=== PATIENT | male | born 1980 | race Hispanic/Latino ===

== ENCOUNTER 2016-12-13 17:26 | Emergency (ER) | payer SELFPAY ==
[2016-12-13] MEDS ORDERED: Ketorolac Tromethamine 60 MG/2 ML VIAL ONE (18:16)
--- NOTE | 2016-12-13 18:43 | RAD ---
THREE VIEWS LUMBAR SPINE: 12/13/16 COMPARISON: 07/05/16 HISTORY: Left leg erythema x2 weeks. Left pain shooting down the buttock to the foot. FINDINGS: Five lumbar type vertebral bodies. Lumbar spine vertebral body height is maintained. No fracture. St able mild to moderate degenerative change at the L4-L5 level. Stable mild degenerative change at L3- L4. Stable osteophyte formation. Straightening of the normal lumbar lordosis is similar to the prior examination. No definite spondylolisthesis or spondylolysis. IMPRESSION: 1. No fracture. 2. Stable degenerative change. POS: [facility]
== END 2016-12-13 18:58 | disposition home or self-care (01) ==
LOC: ERS 17:26
DX: M51.36 Other intervertebral disc degeneration, lumbar region (principal); F17.210 Nicotine dependence, cigarettes, uncomplicated
CPT/HCPCS: 72100; 96372; J1885

== ENCOUNTER 2017-01-04 10:14 | Emergency (ER) | payer SELFPAY ==
[2017-01-04] MEDS ORDERED: Morphine 2 MG/ML SYRINGE ONE (12:51)
[2017-01-04] MEDS ORDERED: Ibuprofen 800 MG TAB ONE (12:52)
[2017-01-04] MEDS ORDERED: Promethazine HCl 25 MG/ML VIAL ONE (12:52)
[2017-01-04] MEDS ORDERED: Dexamethasone 4 mg/ml Vial ONE (12:52)
== END 2017-01-04 13:22 | disposition home or self-care (01) ==
LOC: ERS 10:14
DX: M54.32 Sciatica, left side (principal); F17.210 Nicotine dependence, cigarettes, uncomplicated
CPT/HCPCS: 96372; J1100; J2270; J2550

== ENCOUNTER 2017-05-23 08:54 | Emergency (ER) | payer SELFPAY ==
[2017-05-23 10:27] LABS: #Basophils 0.1 thou/uL (0.0-0.2); #Eosinphils 0.3 thou/uL (0.0-0.7); #Neutrophils 4.9 thou/uL (1.40-6.50); %Basophils 1.2 % (0.0-1.0); %Eosinophils 2.8 % (0.0-10.0); %Lymphocytes 32.8 % (21.0-51.0); %Monocytes 10.2 % (0.0-10.0); Hemoglobin 15.8 g/dL (14.0-18.0); Mean Corpuscular HGB CONC 33.5 g/dL (32.0-36.0); Mean Corpuscular Hemoglobin 29.5 pg (27.0-31.0); Mean Platelet Volume 6.5 fL (7.4-10.4); Platelet Count 371 thou/uL (130-400); RBC Distribution Width 14.8 % (11.5-14.5); Red Blood Cell (RBC) Count 5.34 mill/uL (4.70-6.10); White Blood Cell (WBC) Count 9.3 thou/uL (4.8-10.8)
[2017-05-23 10:52] LABS: ALT (SGPT) 40 U/L (8-55); AST (SGOT) 47 U/L (5-34); Albumin 4.4 g/dL (3.5-5.0); Alkaline Phosphatase 99 U/L (40-150); Anion Gap 12 mmol/L (10-20); BUN (Urea Nitrogen) 8 mg/dL (8.9-20.6); Bilirubin, Total 0.5 mg/dL (0.2-1.2); CK (CPK) 173 U/L (30-200); Calc. Creatinine Clearance 0 mL/min (70-130); Calcium 9.4 mg/dL (7.8-10.44); Carbon Dioxide 24 mmol/L (22-29); Chloride 102 mmol/L (98-107); Estimated GFR-MDRD Greater than 90; Globulin 2.9 g/dL (2.4-3.5); Glucose 99 mg/dL (70-105); Lipase 90 U/L (8-78); Potassium 4.4 mmol/L (3.5-5.1); Protein, Total 7.3 g/dL (6.0-8.3); Sodium 134 mmol/L (136-145)
[2017-05-23 10:56] LABS: CKMB 2.2 ng/mL (0-6.6); Troponin I Less than 0.010 ng/mL (< 0.028)
--- NOTE | 2017-05-23 11:24 | RAD ---
PORTABLE CHEST: Date: 05/23/17 HISTORY: Chest pain. COMPARISON: 11/29/16 study. FINDINGS: Heart size and mediastinum are within normal limits. Lungs are clear of infiltrates. No significant b regla findings. IMPRESSION: No active intrathoracic disease. POS: [facility]
[2017-05-23] MEDS ORDERED: Ketorolac Tromethamine 60 MG/2 ML VIAL ONE (11:25)
--- NOTE | 2017-05-30 13:12 | EKG ---
Test Reason : LEFT SIDE PAIN Blood Pressure : / mmHG Vent. Rate : 091 BPM Atrial Rate : 091 BPM P-R Int : 146 ms QRS Dur : 080 ms QT Int : 340 ms P-R-T Axes : 048 024 022 degrees QTc Int : 418 ms Normal sinus rhythm Septal infarct , age undetermined Abnormal ECG Confirmed by DENYS HAILE ([id number]), editor managing director LIZ BAKER ([id number] on 05/30/2017 1:11:51 PM Referred By: Confirmed By:DENYS HAILE
== END 2017-05-23 12:03 | disposition home or self-care (01) ==
LOC: ERS 08:54
DX: M54.12 Radiculopathy, cervical region (principal); I10 Essential (primary) hypertension; F17.210 Nicotine dependence, cigarettes, uncomplicated; Z79.899 Other long term (current) drug therapy
CPT/HCPCS: 36415; 71045; 80053; 82550; 82553; 83690; 83880; 84484; 85025; 93005; 96372; 99406; J1885

== ENCOUNTER 2017-07-26 09:20 | Inpatient (IN) | payer SELFPAY ==
[2017-07-26] MEDS ORDERED: Morphine 4 MG/ML VIAL ONE ×4 (09:34→13:23)
[2017-07-26] MEDS ORDERED: Pantoprazole 40 MG VIAL ONE (09:34)
[2017-07-26 10:05] LABS: Hemoglobin 15.4 g/dL (14.0-18.0); Mean Corpuscular HGB CONC 35.8 g/dL (32.0-36.0); Mean Corpuscular Volume 89.4 fl (80.0-94.0); Platelet Count 181 thou/uL (130-400); RBC Distribution Width 12.4 % (11.5-14.5); Red Blood Cell (RBC) Count 4.81 mill/uL (4.70-6.10); White Blood Cell (WBC) Count 22.9 thou/uL (4.8-10.8)
[2017-07-26 10:15] LABS: ALT (SGPT) 113 U/L (8-55); AST (SGOT) 133 U/L (5-34); Albumin 3.5 g/dL (3.5-5.0); Alkaline Phosphatase 113 U/L (40-150); Anion Gap 18 mmol/L (10-20); BUN (Urea Nitrogen) 7 mg/dL (8.9-20.6); Bilirubin, Total 1.7 mg/dL (0.2-1.2); CK (CPK) 114 U/L (30-200); Calc. Creatinine Clearance 0 mL/min (70-130); Carbon Dioxide 15 mmol/L (22-29); Chloride 98 mmol/L (98-107); Estimated GFR-MDRD Greater than 90; Globulin 2.9 g/dL (2.4-3.5); Glucose 120 mg/dL (70-105); Lipase 309 U/L (8-78); Potassium 3.4 mmol/L (3.5-5.1); Protein, Total 6.4 g/dL (6.0-8.3); Sodium 128 mmol/L (136-145)
[2017-07-26 10:20] LABS: CKMB 1.6 ng/mL (0-6.6); Troponin I Less than 0.010 ng/mL (< 0.028)
[2017-07-26 10:32] LABS: Band 4 % (5-11); Eosinophils 2 % (0-10); Lymphocytes 4 % (21-51); MDiff Complete? YES; Metamyelocyte 1 % (0-0); Monocytes 5 % (0-10); Neutrophil 84 % (42-75)
[2017-07-26 10:48] LABS: Acetaminophen Less than 6.0 mcg/mL (10.0-30.0); Alcohol Less than 10 mg/dL (Less than 10); Salicylate Less than 8.0 mg/dL (15.0-30.0)
[2017-07-26] MEDS ORDERED: D5 1/2 NS w/20 mEq KCL 1,000 ML IV SCH (11:00)
[2017-07-26 11:14] LABS: Amphetamine Not Detected (NotDetected); Barbiturates Screen Not Detected (NotDetected); Benzodiazepine Screen Not Detected (NotDetected); Cocaine Metabolite Screen Not Detected (NotDetected); Medtox Control Line Valid? VALID (VALID); Medtox Reader # READER 1; Methadone Not Detected (NotDetected); Methamphetamine Not Detected (NotDetected); Opiate Screen Detected (NotDetected); Oxycodone Screen Not Detected (NotDetected); Phencyclidine (PCP) Not Detected (NotDetected); THC/Cannabinoid Screen Detected (NotDetected); Tricyclic Screen Not Detected (NotDetected)
[2017-07-26 11:18] LABS: Clarity Clear (Clear); pH, Urine 6.5 (5.0-9.0)
[2017-07-26 11:19] LABS: Bacteria/HPF None Seen HPF (None Seen); Bilirubin Negative (Negative); Blood, Urine Negative (Negative); Glucose, Urine (Dipstick) Negative (Negative); Hyaline Casts/LPF 0-3 HYALINE CAST LPF (0-3 Hyaline); Leukocyte Trace (Negative); Nitrite Negative (Negative); Protein, Urine (Dipstick) Negative (Neg-Trace); RBC/HPF 0-3 HPF (0-3); Squamous Epithelial 0-3 HPF (0-3); Urobilinogen 0.2 mg/dL (0.2-1.0); WBC/HPF 0-3 HPF (0-3)
--- NOTE | 2017-07-26 12:35 | RAD ---
CHEST 1 VIEW: COMPARISON: 05/23/17. HISTORY: Vomiting and nausea. FINDINGS: Normal cardiac silhouette. Pulmonary vessels and hilum are normal. Costophrenic angles are clear. Diminished lung volumes, likely due to a poor inspiratory effort. No consolidation or mass. No pneu mothorax or osseous abnormalities. IMPRESSION: No acute cardiopulmonary process. POS: [facility]
--- NOTE | 2017-07-26 12:47 | CT ---
ABDOMEN CT WITH CONTRAST PELVIC CT WITH CONTRAST: HISTORY: Abdominal pain. COMPARISON: 11/29/16. TECHNIQUE: An abdomen and pelvic CT are performed with IV contrast. Enteric contrast was not administered. Cor onal reformatted images are submitted for interpretation. FINDINGS: ABDOMEN CT: Atelectatic changes of the lung bases. Heart size normal. No pericardial effusion. The descending thoracic aorta and abdominal aorta have a normal caliber. No periaortic fat stranding. Hypoattenuation of the liver due to hepatic steatosis. Gallbladder is unremarkable. Portal vein is patent. Spleen and adrenal glands have appropriate enhancement. There is peripancreatic inflammatory change at the level of the distal body and tail of the pancreas. Fluid is noted anterior to the right perirenal space. No evidence of cyst, pseudocyst, or abscess. No gastrohepatic, retrocrural, or periportal lymphadenopathy. No mesenteric mass, lymphadenopathy, or free air. A small amount of fluid in the left pericolic gutt er. Limited evaluation of the alimentary canal due to lack of oral contrast. Gastric mucosa, duodenum, a nd multiple normal-caliber small bowel loops are normal. Ileocecal junction is normal. There is div erticulosis of the sigmoid colon. No diverticulitis. Additional diverticulosis of the right hemicolon is noted. Note, the cecal apex crosses midline and is in the left lower quadrant. Appendix is not appreciated. No obvious inflammation at the cecal ap ex. PELVIC CT: No mass, lymphadenopathy, free air, or free fluid. Right inguinal hernia contains fat as well as a s egment of the urinary bladder. No lytic or blastic lesions in the osseous structures. IMPRESSION: 1. Pancreatitis. No evidence of cyst, pseudocyst, or abscess. 2. Hepatic steatosis. 3. Diverticulosis, without evidence of diverticulitis. POS: [facility]
[2017-07-26] MEDS ORDERED: ISOVUE-370 76%-LOCM 1 ML ONE (13:34)
[2017-07-26 14:33] VITALS: BMI 36.2
[2017-07-26] MEDS ORDERED: Ondansetron HCl/PF 4 MG/2 ML Vial IVP PRN (14:33)
[2017-07-26] MEDS ORDERED: Ondansetron ODT 4 MG TAB SL PRN (14:33)
[2017-07-26] MEDS ORDERED: Morphine 4 MG/ML VIAL SLOW IVP PRN (14:37)
[2017-07-26] MEDS ORDERED: Senokot 8.6 MG TAB PO PRN (16:27)
[2017-07-26] MEDS ORDERED: Promethazine HCl 25 MG/ML VIAL IM PRN (16:27)
[2017-07-26] MEDS ORDERED: Guaifenesin DM 100-10/5 ML UDCUP PO PRN (16:27)
[2017-07-26] MEDS ORDERED: Acetaminophen 325 MG TAB PO PRN (16:27)
[2017-07-26] MEDS ORDERED: Lactated Ringer's 1,000 ML IV SCH ×2 (16:30→19:30)
[2017-07-26] MEDS: Meperidine HCl/PF 25 MG/ML VIAL SLOW IVP PRN ×3 (16:48→23:45)
[2017-07-26 17:11] LABS: Cardiac Risk 5.5 (Less than 4.5); Cholesterol 122 mg/dl (< 200 Desired); HDL Cholesterol 22 mg/dL (>60 Neg Risk); Triglycerides 420 mg/dL (Less than 150)
[2017-07-26] MEDS: Lactated Ringer's 1,000 ML IV SCH (20:35)
[2017-07-26] MEDS: Metoprolol Tartrate 50 MG TAB PO SCH (20:36)
[2017-07-26] MEDS: Famotidine/PF 20 mg/2ml Vial SLOW IVP SCH (20:36)
[2017-07-26] MEDS: Docusate 100 MG CAP PO SCH (20:36)
[2017-07-26] MEDS: MEROPENEM 1 GM/50 ML 1 GM in Premix Bag 1 BAG IVPB SCH (20:37)
--- NOTE | 2017-07-26 21:47 | HP ---
REASON FOR ADMISSION: Acute pancreatitis. HISTORY OF PRESENT ILLNESS: Patient gives history of having severe abdominal pain in the middle of his belly. This started after he ate around 3:30 p.m. The pain is more of a twisting in nature. The pain is radiating to the back. It is 10/10 in intensity to start with, and came down to around 8. He tried to sleep with it, but could not sleep the whole night and finally made it to the emergency room this morning. Patient states he has had a bowel movement yesterday morning which was normal. Patient vomited nearly 4 or 5 times from yesterday. He has not been able to keep anything down. He states he has had prior episode of pancreatitis 4 years back. He admits to drinking 6 pack of beer daily. No complaints of fever, chest pain, palpitation, PND or orthopnea. PAST MEDICAL/SURGICAL HISTORY: History of hypertension, dyslipidemia, prior history of pancreatitis 4 years back, psoriasis. CURRENT MEDICATIONS: Patient has run out of his hypertension medication for the last two months. He goes to [facility] and has not been there in a long time. ALLERGIES: No known drug allergies. PERSONAL HISTORY: Smokes half pack a day. Does not abuse drugs, but drinks 6 pack of beer on daily basis. He denies additional hard liquor. He lives with his . FAMILY HISTORY: Both parents have had history of DE. Mom at the age of 54. Father at the age of 56. REVIEW OF SYSTEMS: The following complete review of systems was negative, unless otherwise mentioned in the HPI or below: Constitutional: Weight loss or gain, ability to conduct usual activities. Skin: Rash, itching. Eyes: Double vision, pain. ENT/Mouth: Nose bleeding, neck stiffness, pain, tenderness. Cardiovascular: Palpitations, dyspnea on exertion, orthopnea. Respiratory: Shortness of breath, wheezing, cough, hemoptysis, fever or night sweats. Gastrointestinal: Poor appetite, abdominal pain, heartburn, nausea, vomiting, constipation, or diarrhea. Genitourinary: Urgency, frequency, dysuria, nocturia. Musculoskeletal: Pain, swelling. Neurologic/Psychiatric: Anxiety, depression. Allergy/Immunologic: Skin rash, bleeding tendency. PHYSICAL EXAMINATION: GENERAL: Patient is a 36-year-old male who is currently in moderate to severe distress from abdominal pain. VITAL SIGNS: Blood pressure 170/126, respiratory rate is 20 per minute, pulse is 118 per minute, temperature 98.4 degrees Fahrenheit, saturating 96% on room air. NECK: Supple, no elevated JVD. HEENT: Eyes, extraocular muscles intact. Pupils reacting to light. Oral cavity, mucous membranes are dry. No exudates or congestion. CARDIOVASCULAR: S1, S2 heard, tachycardic. RESPIRATORY: Air entry 1+ bilateral. Scattered rhonchi plus no wheezes or rales. ABDOMEN: Tender to touch in all 4 quadrants. Has voluntary guarding. Bowel sounds are heard. No rigidity. EXTREMITIES: No peripheral edema or calf tenderness. VASCULAR SYSTEM: Peripheral pulses 1+ bilateral, no ischemic ulcerations or gangrene. CENTRAL NERVOUS SYSTEM: No gross focal deficits seen. Patient is alert, awake , oriented well. PSYCHIATRIC: The patient's mood is euthymic. No hallucinations or delusions. LABORATORY AND X-RAY FINDINGS: EKG done shows sinus tachycardia at 113 beats per minute. White count of 22, H&H 15 and 43, platelet count 181 with 84% neutrophils and 4% bands. Sodium 128, potassium 3.4, serum bicarbonate is 15, BUN 7, creatinine 0.6, glucose 120, total bilirubin 1.7, AST 133, ALT 113, alkaline phosphatase 113. One set of cardiac enzymes are negative. Albumin is 3.5. Lipase is 309, MCV is 89 on the CBC. Urine drug screen is positive for opiates and marijuana. Plasma alcohol was less than 10. Chest x-ray done shows no acute cardiopulmonary process. CT of the abdomen and pelvis with contrast done shows peripancreatic inflammatory change at the level of the distal body and tail of the pancreas, fluid is also noted anterior to the right perirenal space. No evidence of cyst, pseudocyst or abscess seen. No mesenteric mass, lymphadenopathy or free air seen and has findings of hepatic steatosis and diverticulosis without evidence of diverticulitis. CLINICAL IMPRESSION AND PLAN: Patient will be admitted to telemetry for acute pancreatitis. He has known history of alcohol abuse and also hypertriglyceridemia. Had triglyceride levels of 429 in 08/2014. Patient also had 1 prior episode of pancreatitis 4 years ago. He will be aggressively hydrated with Ringer's lactate at 120 mL per hour. Demerol p.r.n. for pain, Norvasc and Lopressor for his hypertension, Colace, Pepcid. He will be on clear liquid diet and I have consulted Dr. Alexander Morton for Gastroenterology. We will continue to closely monitor him for any further worsening. Code status was discussed with patient and he is a FULL CODE. His prognosis is guarded as of now. We will continue to closely monitor him. He will also be on Lovenox for DVT prophylaxis. MTDD
[2017-07-26] MEDS ORDERED: Meropenem 1 GM in Sodium Chloride 0.9% 100 ML IVPB SCH (22:00)
--- NOTE | 2017-07-27 00:40 | CON ---
DATE OF CONSULTATION: 07/26/2017 GASTROENTEROLOGY CONSULTATION CHIEF COMPLAINT: Abdominal pain. HISTORY OF PRESENT ILLNESS: Mr. Cummins is a 36-year-old man who drinks a 6 pack of beer per day at least since he was 14 or 15. He developed onset of periumbilical to diffuse abdominal cramping pain yesterday. The pain progressed and he came onto the emergency room this morning for further care. Karl araujo has no ongoing nausea or vomiting, no diarrhea, constipation or blood in the stool. His weight has been stable. He had a CT scan in the ER that showed inflammatory changes around the pancreas. He d enies a prior history of pancreatitis. No family history of pancreatitis. PAST MEDICAL HISTORY: Hypertension. PAST SURGICAL HISTORY: Negative. FAMILY HISTORY: Negative for GI malignancy or pancreas disease. SOCIAL HISTORY: He smokes half a pack per day. He drinks a 6 pack per day. Denies drug use. ALLERGIES: No known drug allergies. MEDICATIONS PRIOR TO ADMISSION: None. REVIEW OF SYSTEMS: Negative x10 systems reviewed except as stated in the history of present illness. PHYSICAL EXAMINATION: VITAL SIGNS: Temperature 98.6, pulse 125, blood pressure 162/109. He appears to have received a lit er of D5 half normal saline in the emergency room, some meropenem and is on lactated Ringer's at 120 mL per hour now. GENERAL: He is in no acute distress, alert and oriented x3. HEENT: Eyes have no scleral icterus. Oropharynx is clear without lesions. NECK: No cervical or supraclavicular lymphadenopathy. LUNGS: Clear to auscultation bilaterally. HEART: Tachycardic, S1, S2. ABDOMEN: Soft, tender diffusely without guarding. Bowel sounds are present. His abdomen is somewha t distended. EXTREMITIES: No lower extremity edema. LABORATORY: White blood cell count 22.9, hemoglobin 15.4, platelets 181. Sodium 128, potassium 3.4, chloride 98, CO2 of 15, BUN 7, creatinine 0.68, bilirubin 1.7, AST 133, ALT 113, alkaline phosphatas e 113, albumin 3.5, lipase 309, triglycerides 420. IMPRESSION: 1. Acute alcoholic pancreatitis. His lipase is elevated at 309, which is greater than 3 times upper limit of normal; however, need expect iron numbers with the acute inflammatory changes noted by CT s can. He likely has chronic alcoholic pancreatitis, which may result in lower lipase numbers. Overal l, this is a mild pancreatitis without secondary organ failure. He is tachycardic and likely needs a dditional fluid resuscitation. 2. Alcoholic hepatitis. His bilirubin is elevated at 1.7 with an AST of 133 and ALT of 113, alkalin e phosphatase of 113. 3. Hyponatremia. This could be related to chronic beer consumption. IMAGING: CT scan did not show obvious biliary dilation. The gallbladder appeared normal by CT. I d o not think he has a gallstone pancreatitis; however, I will request an ultrasound of the gallbladder to rule out stones and recheck the liver test tomorrow. RECOMMENDATIONS: 1. Additional bolus of lactated Ringer's and increase the baseline rate. 2. Recheck the liver test tomorrow morning. 3. If his pain is significantly improved tomorrow, then he could started clear liquid or even a low-f at diet depending on how he is doing.
[2017-07-27] MEDS: Lactated Ringer's 1,000 ML IV SCH ×4 (03:15→15:16)
[2017-07-27] MEDS: Meperidine HCl/PF 25 MG/ML VIAL SLOW IVP PRN ×6 (03:26→20:53)
[2017-07-27] MEDS: MEROPENEM 1 GM/50 ML 1 GM in Premix Bag 1 BAG IVPB SCH ×3 (05:24→21:06)
[2017-07-27 05:48] LABS: #Lymphocytes 1.3 thou/uL (1.20-3.40); #Monocytes 1.2 thou/uL (0.11-0.59); #Neutrophils 14.7 thou/uL (1.40-6.50); %Basophils 0.1 % (0.0-1.0); %Eosinophils 0.2 % (0.0-10.0); %Lymphocytes 7.5 % (21.0-51.0); %Neutrophils 85.2 % (42.0-75.0); ALT (SGPT) 76 U/L (8-55); AST (SGOT) 70 U/L (5-34); Albumin 3.1 g/dL (3.5-5.0); Alkaline Phosphatase 85 U/L (40-150); Anion Gap 11 mmol/L (10-20); BUN (Urea Nitrogen) 5 mg/dL (8.9-20.6); Bilirubin, Total 1.6 mg/dL (0.2-1.2); Calc. Creatinine Clearance 194 mL/min (70-130); Calcium 8.2 mg/dL (7.8-10.44); Carbon Dioxide 23 mmol/L (22-29); Chloride 99 mmol/L (98-107); Estimated GFR-MDRD Greater than 90; Globulin 2.7 g/dL (2.4-3.5); Glucose 115 mg/dL (70-105); Hemoglobin 14.3 g/dL (14.0-18.0); Mean Corpuscular HGB CONC 34.1 g/dL (32.0-36.0); Mean Corpuscular Hemoglobin 31.6 pg (27.0-31.0); Mean Corpuscular Volume 92.8 fl (80.0-94.0); Mean Platelet Volume 7.7 fL (7.4-10.4); Platelet Count 123 thou/uL (130-400); Potassium 3.5 mmol/L (3.5-5.1); Protein, Total 5.8 g/dL (6.0-8.3); RBC Distribution Width 12.6 % (11.5-14.5); Red Blood Cell (RBC) Count 4.51 mill/uL (4.70-6.10); Sodium 129 mmol/L (136-145); White Blood Cell (WBC) Count 17.2 thou/uL (4.8-10.8)
[2017-07-27 06:14] LABS: HBCM Index 0.06 S/CO (0-0.79); HBSAB Concentration 1.38 mIU/mL; HBSAg Index 0.18 S/CO (0-0.99); Hep A IgM AB Non-Reactive (NonReactive); Hep A IgM S/CO 0.11 S/CO (0-0.79); Hep B Surf AB Non-Reactive (NonReactive); Hep B Surf Ag Non-Reactive S/CO (NonReactive); Hep C IgG Ab Non-Reactive (NonReactive); Hep C Index 0.11 S/CO (0-0.79); Hepatitis B Core IGM Abs Non-Reactive (NonReactive)
[2017-07-27] MEDS: Docusate 100 MG CAP PO SCH ×2 (09:14→20:13)
[2017-07-27] MEDS: Amlodipine 10 MG TAB PO SCH (09:15)
[2017-07-27] MEDS: Metoprolol Tartrate 50 MG TAB PO SCH ×2 (09:15→20:13)
[2017-07-27] MEDS: Enoxaparin Sodium 40 MG/0.4 ML SYRINGE SC SCH (09:18)
--- NOTE | 2017-07-27 11:29 | ULT ---
RIGHT UPPER QUADRANT ULTRASOUND: DATE: 07/27/17. HISTORY: Pancreatitis, alcoholic hepatitis. COMPARISON: 07/26/17. FINDINGS: The liver is enlarged measuring 18.7 cm in craniocaudal dimensions. The liver also demonstrates incr eased echogenicity related to diffuse fatty infiltration. Gallbladder has a normal appearance and no gallbladder calculi are seen. The common duct measures 0. 7 cm in diameter which is dilated. No intrahepatic biliary ductal dilatation is present. The right kidney measures 12.1 cm in length. There is a 0.9 cm shadowing echogenic focus in the infe rior pole left kidney related to a nonobstructing inferior pole right renal calculus which was also n oted on a recent CT exam. The majority of the pancreas is obscured and not well evaluated on this exam. Limited visualized por tions of the IVC demonstrate a normal sonographic appearance. IMPRESSION: 1. Hepatomegaly with diffuse fatty infiltration of the liver. 2. Nonobstructing right renal calculus. 3. Mild gallbladder calculi are seen, but the common duct is dilated measuring 0.7 cm in diameter. There is no intrahepatic biliary dilatation seen. POS: [facility]
[2017-07-27] MEDS: Famotidine/PF 20 mg/2ml Vial SLOW IVP SCH (12:05)
[2017-07-27] MEDS ORDERED: Pantoprazole 40 MG VIAL IVP SCH (12:30)
--- NOTE | 2017-07-27 15:04 | PRG ---
DATE OF SERVICE: 07/27/2017 SUBJECTIVE: He still has epigastric pain, but feels a little better. OBJECTIVE: VITAL SIGNS: Temperature 98.6, pulse 93, blood pressure 143/96. GENERAL: He is in no acute distress, awake and alert and oriented. LUNGS: Clear to auscultation bilaterally. HEART: Regular rate and rhythm. ABDOMEN: Soft, tender in the epigastric region without guarding. Bowel sounds are present. EXTREMITIES: No lower extremity edema. LABORATORY DATA: Bilirubin 1.6, AST 70, ALT 76, alkaline phosphatase 85. IMPRESSION: Alcoholic pancreatitis. There are significant inflammatory changes noted by CT scan. T he lipase was elevated at 309. His ultrasound today does show evidence of gallstones with minimal bi liary dilation at 7 mm. RECOMMENDATIONS: We will obtain MRCP to evaluate for choledocholithiasis.
--- NOTE | 2017-07-27 15:26 | PDOC.PN ---
- Subjective Encounter Start Date: 07/27/17 Encounter Start Time: 09:00 Subjective: abd pain is better, no nausea -: is amb in hallway - Objective Resuscitation Status: Resuscitation Status FULL:Full Resuscitation MAR Reviewed: Yes Vital Signs & Weight: Vital Signs (12 hours) Temp Pulse Resp BP Pulse Ox 07/27/17 12:40 93 143/96 H 07/27/17 11:13 98.6 F 95 17 175/96 H 95 07/27/17 09:23 147/104 H 07/27/17 09:15 102 H 07/27/17 08:04 98.0 F 102 H 18 167/112 H 92 L 07/27/17 04:21 140/92 H Weight Weight 217 lb I&O: 07/26/17 07/27/17 07/28/17 06:59 06:59 06:59 Intake Total 4020 Balance 4020 Result Diagrams: 07/27/17 04:45 07/27/17 04:45 Phys Exam - Physical Examination HEENT: PERRLA, moist MMs Neck: no JVD, supple Respiratory: no wheezing, no rales Cardiovascular: RRR, no significant murmur Gastrointestinal: soft, positive bowel sounds mild tenderness over upper quadrants+, no rigidity or guarding Musculoskeletal: no edema, pulses present Neurological: non-focal, moves all 4 limbs Psychiatric: A&O x 3 Dx/Plan (1) Acute pancreatitis Code(s): K85.90 - ACUTE PANCREATITIS WITHOUT NECROSIS OR INFECTION, UNSP Status: Acute Qualifiers: Pancreatitis type: alcohol induced (2) Alcoholic hepatitis Code(s): K70.10 - ALCOHOLIC HEPATITIS WITHOUT ASCITES Status: Acute Qualifiers: Ascites presence: without ascites Qualified Code(s): K70.10 - Alcoholic hepatitis without ascites (3) Hypertriglyceridemia Code(s): E78.1 - PURE HYPERGLYCERIDEMIA Status: Chronic (4) Obesity (BMI 30-39.9) Code(s): E66.9 - OBESITY, UNSPECIFIED Status: Chronic (5) Alcohol abuse Code(s): F10.10 - ALCOHOL ABUSE, UNCOMPLICATED Status: Chronic (6) Hypertension Code(s): I10 - ESSENTIAL (PRIMARY) HYPERTENSION Status: Chronic Qualifiers: Hypertension type: essential hypertension Qualified Code(s): I10 - Essential (primary) hypertension - Plan on iv lactated ringers @120mls/hr -: demerol prn -: will add gemfibrozil for hypertriglyceridemia -: on thiamine, folic acid, lopressor and norvasc -: empiric meropenem-may dc in am if stable, tx to med floor * . Review of Systems - Medications/Allergies Allergies/Adverse Reactions: Allergies Allergy/AdvReac Type Severity Reaction Status Date / Time No Known Allergies Allergy Verified 11/29/16 11:51 Medications: Current Medications Acetaminophen (Tylenol) 650 mg PO Q4H PRN PRN Reason: Headache/Fever or Pain Albuterol/Ipratropium (Duoneb) 3 ml NEB [id number] PRN PRN Reason: SOB &/or Wheezing Amlodipine Besylate (Norvasc) 10 mg PO DAILY [facility] Last Admin: 07/27/17 09:15 Dose: 10 mg Docusate Sodium (Colace) 100 mg PO BID [facility] Last Admin: 07/27/17 09:14 Dose: 100 mg Enoxaparin Sodium (Lovenox) 40 mg SC 0900 [facility] Last Admin: 07/27/17 09:18 Dose: 40 mg Famotidine (Pepcid) 20 mg SLOW IVP Q12HR [facility] Last Admin: 07/27/17 12:05 Dose: Not Given Guaifenesin/Dextromethorphan (Robitussin Dm) 15 ml PO Q4H PRN PRN Reason: Cough Meropenem 1 gm/ Device 50 mls @ 100 mls/hr IVPB Q8HR [facility] Last Admin: 07/27/17 14:30 Dose: 50 mls Lactated Ringer's (Lactated Ringer's) 1,000 mls @ 120 mls/hr IV .Q8H20M [facility] Last Admin: 07/27/17 15:14 Dose: Not Given Meperidine HCl (Demerol) 25 mg SLOW IVP Q3H PRN PRN Reason: Severe Pain (7-10) Last Admin: 07/27/17 14:32 Dose: 25 mg Metoprolol Tartrate (Lopressor) 50 mg PO BID [facility] Last Admin: 07/27/17 09:15 Dose: 50 mg Pantoprazole Sodium (Protonix) 40 mg IVP DAILY [facility] Promethazine HCl (Phenergan) 12.5 mg IM Q4H PRN PRN Reason: Nausea/Vomiting Senna (Senokot) 2 tab PO HSPRN PRN PRN Reason: Constipation Sodium Chloride (Flush - Normal Saline) 10 ml IVF Q12HR NATHANIEL Sodium Chloride (Flush - Normal Saline) 10 ml IVF PRN PRN PRN Reason: Saline Flush
[2017-07-27] MEDS: Gemfibrozil 600 MG TAB PO SCH (16:08)
--- NOTE | 2017-07-27 18:23 | MRI ---
MRI ABDOMEN WITHOUT CONTRAST: HISTORY: Evaluation for choledocholithiasis. COMPARISON: Ultrasound from 07/27/[address] from 07/26/2017. FINDINGS: There is severe hepatic steatosis with a fat fraction of 37.3% in fat percentage of 37.6%. No cholelithiasis. No choledocholithiasis. The common bile duct is normal in caliber, as well as th e pancreatic duct. Extensive acute edematous pancreatitis of the pancreatic tail without focal fluid collection. Modera te edema within the anterior pararenal space and perirenal space. There are simple cysts, superior pole, left kidney. Small hepatic cysts are present. Mild reactive edema, third portion of the duodenum. There are atelectatic changes, left lung base, and small left effusion, likely reactive. Marrow sign al is normal. The aortic contour is normal. IMPRESSION: 1. No cholelithiasis or cholelithiasis. Normal caliber of the common bile duct and pancreatic duct. 2. Acute edematous pancreatitis without focal fluid collection. 3. Simple hepatic and left renal cysts. 4. Small left effusion and passive atelectasis, left lower lobe. POS: [facility]
[2017-07-28] MEDS: Meperidine HCl/PF 25 MG/ML VIAL SLOW IVP PRN ×6 (00:02→23:36)
[2017-07-28] MEDS: Lactated Ringer's 1,000 ML IV SCH ×4 (00:06→18:46)
[2017-07-28] MEDS: MEROPENEM 1 GM/50 ML 1 GM in Premix Bag 1 BAG IVPB SCH ×2 (06:25→15:56)
[2017-07-28] MEDS ORDERED: Pantoprazole 40 MG VIAL IVP SCH (09:00)
[2017-07-28] MEDS: Gemfibrozil 600 MG TAB PO SCH ×2 (09:07→15:48)
[2017-07-28] MEDS: Enoxaparin Sodium 40 MG/0.4 ML SYRINGE SC SCH (09:07)
[2017-07-28] MEDS: Amlodipine 10 MG TAB PO SCH (09:08)
[2017-07-28] MEDS: Docusate 100 MG CAP PO SCH ×2 (09:08→20:02)
[2017-07-28] MEDS: Metoprolol Tartrate 50 MG TAB PO SCH ×2 (09:08→20:01)
--- NOTE | 2017-07-28 12:01 | PRG ---
DATE OF SERVICE: 07/28/2017 SUBJECTIVE: Mr. Cummins has been tolerating clear liquids. He did have some cramping and loose stoo l after eating a bowl of broth this morning, but after he had a bowel movement, his abdominal pain re solved. He has had no other acute complaints. PHYSICAL EXAMINATION: VITAL SIGNS: Temperature 98.2, pulse 92, blood pressure 141/90. GENERAL: He is in no acute distress, awake and alert. LUNGS: Clear to auscultation bilaterally. HEART: Regular rate and rhythm. ABDOMEN: Soft. Mild epigastric tenderness. Bowel sounds are present. EXTREMITIES: No lower extremity edema. IMPRESSION: 1. Alcoholic pancreatitis. His lipase was only mildly elevated at 309. However, significant inflam matory changes were noted by CT scan. Ultrasound showed evidence of gallstones. However, MRCP showe d no evidence of gallstones and no evidence of choledocholithiasis. 2. Mild alcoholic hepatitis. 3. Alcohol abuse. RECOMMENDATIONS: 1. I will try advancing to a low-fat diet today. 2. Recheck liver tests and a lipase and white blood cell count tomorrow morning.
--- NOTE | 2017-07-28 15:25 | PDOC.PN ---
- Subjective Encounter Start Date: 07/28/17 Encounter Start Time: 10:00 Patient is seen today, alert and oriented. No other Concern noted. - Objective Resuscitation Status: Resuscitation Status FULL:Full Resuscitation MAR Reviewed: Yes Vital Signs & Weight: Vital Signs (12 hours) Temp Pulse Resp BP BP Pulse Ox 07/28/17 09:08 92 141/90 H 07/28/17 08:00 98.2 F 92 20 141/90 H 92 L Weight Weight 217 lb I&O: 07/27/17 07/28/17 07/29/17 06:59 06:59 06:59 Intake Total 4020 1999 Balance 4020 1999 Result Diagrams: 07/27/17 04:45 07/27/17 04:45 Radiology Reviewed by me: Yes Phys Exam - Physical Examination HEENT: PERRLA, moist MMs Neck: no nodes, no JVD Respiratory: no wheezing, no rales Cardiovascular: RRR, no significant murmur Gastrointestinal: soft, non-tender Musculoskeletal: no edema, pulses present Neurological: non-focal, normal sensation Psychiatric: normal affect, A&O x 3 Dx/Plan (1) Diarrhea Code(s): R19.7 - DIARRHEA, UNSPECIFIED Status: Acute Comment: Will d/c IV antibitoics, likely Antibiotics Associated, Cdiff test. (2) Acute pancreatitis Code(s): K85.90 - ACUTE PANCREATITIS WITHOUT NECROSIS OR INFECTION, UNSP Status: Acute Qualifiers: Pancreatitis type: alcohol induced Comment: Resolved, Will advance Diet. (3) Alcoholic hepatitis Code(s): K70.10 - ALCOHOLIC HEPATITIS WITHOUT ASCITES Status: Acute Qualifiers: Ascites presence: without ascites Qualified Code(s): K70.10 - Alcoholic hepatitis without ascites Comment: Emcouraged to Stop alcohol. (4) Hypertriglyceridemia Code(s): E78.1 - PURE HYPERGLYCERIDEMIA Status: Chronic Comment: Will continue with Low Fat diet. (5) Obesity (BMI 30-39.9) Code(s): E66.9 - OBESITY, UNSPECIFIED Status: Chronic (6) Chest pain Code(s): R07.9 - CHEST PAIN, UNSPECIFIED Status: Acute Qualifiers: Chest pain type: unspecified Qualified Code(s): R07.9 - Chest pain, unspecified Comment: no Trop Elevation. (7) Alcohol abuse Code(s): F10.10 - ALCOHOL ABUSE, UNCOMPLICATED Status: Chronic (8) Hypertension Code(s): I10 - ESSENTIAL (PRIMARY) HYPERTENSION Status: Chronic Qualifiers: Hypertension type: essential hypertension Qualified Code(s): I10 - Essential (primary) hypertension Comment: Well controlled. Will cotninue with Home meds, Will avoide THiazides. - Plan cont current plan of care, PT/OT, out of bed/ambulate, DVT proph w/heparin, DVT proph w/SCDs * . - Discharge Day Encounter end time: 10:35 Review of Systems - Review of Systems Constitutional: negative: fever, chills, sweats, weakness, malaise, other Eyes: negative: Pain, Vision Change, Conjunctivae Inflammation, Eyelid Inflammation, Redness, Other Respiratory: negative: Cough, Dry, Shortness of Breath, Hemoptysis, SOB with Excertion, Pleuritic Pain, Sputum, Wheezing Cardiovascular: negative: chest pain, palpitations, orthopnea, paroxysmal nocturnal dyspnea, edema, light headedness, other Gastrointestinal: Diarrhea. negative: Nausea, Vomiting, Abdominal Pain, Constipation, Melena, Hematochezia, Other Musculoskeletal: negative: Neck Pain, Shoulder Pain, Arm Pain, Back Pain, Hand Pain, Leg Pain, Foot Pain, Other - Medications/Allergies Allergies/Adverse Reactions: Allergies Allergy/AdvReac Type Severity Reaction Status Date / Time No Known Allergies Allergy Verified 11/29/16 11:51 Medications: Current Medications Acetaminophen (Tylenol) 650 mg PO Q4H PRN PRN Reason: Headache/Fever or Pain Albuterol/Ipratropium (Duoneb) 3 ml NEB T3HD-AR PRN PRN Reason: SOB &/or Wheezing Amlodipine Besylate (Norvasc) 10 mg PO DAILY [facility] Last Admin: 07/28/17 09:08 Dose: 10 mg Docusate Sodium (Colace) 100 mg PO BID [facility] Last Admin: 07/28/17 09:08 Dose: 100 mg Enoxaparin Sodium (Lovenox) 40 mg SC 09 [facility] Last Admin: 07/28/17 09:07 Dose: 40 mg Gemfibrozil (Lopid) 600 mg PO BID-AC [facility] Last Admin: 07/28/17 09:07 Dose: 600 mg Guaifenesin/Dextromethorphan (Robitussin Dm) 15 ml PO Q4H PRN PRN Reason: Cough Meropenem 1 gm/ Device 50 mls @ 100 mls/hr IVPB Q8HR [facility] Last Admin: 07/28/17 06:25 Dose: 50 mls Lactated Ringer's (Lactated Ringer's) 1,000 mls @ 120 mls/hr IV .Q8H20M [facility] Last Admin: 07/28/17 11:03 Dose: 1,000 mls Meperidine HCl (Demerol) 25 mg SLOW IVP Q3H PRN PRN Reason: Severe Pain (7-10) Last Admin: 07/28/17 11:01 Dose: 25 mg Metoprolol Tartrate (Lopressor) 50 mg PO BID [facility] Last Admin: 07/28/17 09:08 Dose: 50 mg Pantoprazole Sodium (Protonix) 40 mg PO DAILY [facility] Last Admin: 07/28/17 09:08 Dose: 40 mg Promethazine HCl (Phenergan) 12.5 mg IM Q4H PRN PRN Reason: Nausea/Vomiting Senna (Senokot) 2 tab PO HSPRN PRN PRN Reason: Constipation Sodium Chloride (Flush - Normal Saline) 10 ml IVF Q12HR [facility] Last Admin: 07/28/17 09:09 Dose: Not Given Sodium Chloride (Flush - Normal Saline) 10 ml IVF PRN PRN PRN Reason: Saline Flush
[2017-07-29] MEDS: Meperidine HCl/PF 25 MG/ML VIAL SLOW IVP PRN ×3 (04:29→14:51)
[2017-07-29] MEDS: Lactated Ringer's 1,000 ML IV SCH ×2 (04:31→16:24)
[2017-07-29 05:32] LABS: #Basophils 0.1 thou/uL (0.0-0.2); #Eosinphils 0.1 thou/uL (0.0-0.7); #Neutrophils 5.1 thou/uL (1.40-6.50); %Basophils 0.6 % (0.0-1.0); %Eosinophils 1.1 % (0.0-10.0); %Lymphocytes 32.3 % (21.0-51.0); %Monocytes 10.8 % (0.0-10.0); %Neutrophils 55.2 % (42.0-75.0); Hemoglobin 12.7 g/dL (14.0-18.0); Mean Corpuscular HGB CONC 33.7 g/dL (32.0-36.0); Mean Corpuscular Hemoglobin 31.7 pg (27.0-31.0); Mean Corpuscular Volume 94.2 fl (80.0-94.0); Mean Platelet Volume 7.5 fL (7.4-10.4); Platelet Count 162 thou/uL (130-400); RBC Distribution Width 12.7 % (11.5-14.5); Red Blood Cell (RBC) Count 4.01 mill/uL (4.70-6.10); White Blood Cell (WBC) Count 9.2 thou/uL (4.8-10.8)
[2017-07-29 05:52] LABS: ALT (SGPT) 53 U/L (8-55); AST (SGOT) 65 U/L (5-34); Alkaline Phosphatase 108 U/L (40-150); Anion Gap 8 mmol/L (10-20); BUN (Urea Nitrogen) 5 mg/dL (8.9-20.6); Bilirubin, Total 0.7 mg/dL (0.2-1.2); Calc. Creatinine Clearance 215 mL/min (70-130); Calcium 8.5 mg/dL (7.8-10.44); Carbon Dioxide 30 mmol/L (22-29); Chloride 100 mmol/L (98-107); Estimated GFR-MDRD Greater than 90; Globulin 2.9 g/dL (2.4-3.5); Glucose 133 mg/dL (70-105); Lipase 296 U/L (8-78); Potassium 3.7 mmol/L (3.5-5.1); Protein, Total 5.9 g/dL (6.0-8.3); Sodium 134 mmol/L (136-145)
[2017-07-29] MEDS: Docusate 100 MG CAP PO SCH (08:30)
[2017-07-29 08:31] VITALS: BP 152/98; TEMP 97.9
[2017-07-29] MEDS: Gemfibrozil 600 MG TAB PO SCH ×2 (08:31→16:20)
[2017-07-29] MEDS: Metoprolol Tartrate 50 MG TAB PO SCH (08:31)
[2017-07-29] MEDS: Amlodipine 10 MG TAB PO SCH (08:31)
[2017-07-29] MEDS: Enoxaparin Sodium 40 MG/0.4 ML SYRINGE SC SCH (08:31)
--- NOTE | 2017-07-29 14:51 | PRG ---
DATE OF SERVICE: 07/29/2017 SUBJECTIVE: Mr. Cummins is tolerating a solid diet well. His abdominal pain is improved. LABORATORY DATA: White blood cell count 9.2, hemoglobin 12.7, platelets 162. Bilirubin is down to 0 .7, AST 65, ALT 53, alkaline phosphatase 108, creatinine 0.65. Lipase 296. IMPRESSION: 1. Alcoholic pancreatitis, clinically improved. MRCP and ultrasound showed no evidence of gallstone s and no evidence of choledocholithiasis. 2. Mild alcoholic hepatitis, improving. 3. Alcohol abuse. RECOMMENDATIONS: 1. He is tolerating a low fat diet. 2. Alcohol cessation is advised. He is also encouraged to get help with this. 3. Anticipate discharge home today. I will sign off for now. Please call if GI can be of assistanc e.
--- NOTE | 2017-07-31 11:00 | DIS ---
DATE OF ADMISSION: 07/26/2017 DATE OF DISCHARGE: 07/29/2017 ADMITTING DIAGNOSIS: Acute pancreatitis. DISCHARGE DIAGNOSIS: Acute alcoholic pancreatitis. SECONDARY DIAGNOSES: 1. Severe dehydration. 2. Alcohol abuse. 3. Severe diarrhea. [employer] INVOLVED IN THIS CARE: Alexander Morton M.D. HISTORY OF PRESENT ILLNESS AND HOSPITAL COURSE: In brief, this is a 36-year-old male with a known history of recurrent pancreatitis secondary to hypertriglyceridemia and also alcohol abuse. HOSPITAL COURSE: Patient presented to the hospital with 10/10 intensity pain and with markedly eleva maximiliano lipase levels. The patient has been having severe vomiting, so GI was consulted. Patient was st arted on aggressive IV hydration, IV pain medications, IV pain management and kept n.p.o. The patien t also had MRI of the abdomen during this admission, which did not show any evidence of cholelithiasi s or any evidence of edematous pancreatitis. The patient was monitored very closely with no evidence of fever. He was also initially started on IV antibiotics which were later discontinued as the telly ent was not septic. The patient showed good improvement and then was discharged home in stable condi tion when he was able to tolerate regular food. DISCHARGE MEDICATIONS: New medications: Amlodipine 10 mg p.o. daily., gemfibrozil 600 mg p.o. b.i.d., metoprolol 50 mg p.o. b.i.d., pantoprazole 40 mg p.o. daily. HOME MEDICATIONS: The patient was on tramadol 100 mg p.o. q.6 hours and Tylenol. DISCHARGE INSTRUCTIONS: 1. Continue activity as tolerated. Advised to avoid drinking alcohol. 2. Advised to follow up with GI in 1-2 weeks. 3. Avoid fatty diet. 4. Continue diet as tolerated with low fat diet. I spent 35 minutes with this patient on the day of discharge, explaining about alcohol and the diet.
== END 2017-07-29 17:23 | disposition home or self-care (01) | DRG 439 ==
LOC: ERS 09:20 → ERHOLD 10:52 → 2NO 14:18 → ONC 07-27 11:46
PROVIDERS: ADMIT Internal Medicine; ATTEND Internal Medicine
DX: K85.20 Alcohol induced acute pancreatitis without necrosis or infection (principal); E87.1 Hypo-osmolality and hyponatremia; R19.7 Diarrhea, unspecified; K70.10 Alcoholic hepatitis without ascites; E78.1 Pure hyperglyceridemia; E66.9 Obesity, unspecified; R07.9 Chest pain, unspecified; F10.10 Alcohol abuse, uncomplicated; I10 Essential (primary) hypertension; F17.210 Nicotine dependence, cigarettes, uncomplicated; E78.5 Hyperlipidemia, unspecified; K86.0 Alcohol-induced chronic pancreatitis; Z68.37 Body mass index [BMI] 37.0-37.9, adult
CPT/HCPCS: 36415; 71045; 74177; 74181; 76705; 80053; 80061; 80074; 80306; 80307; 81003; 81015; 82550; 82553; 83605; 83690; 84484; 85025; 86706; 87040; 93005; 94760; 96361; 96374; 96375; 96376; A4216; C9113; J1650; J2175; J2185; J2270; J7120; S0028

== ENCOUNTER 2018-02-01 10:17 | Emergency (ER) | payer SELFPAY | END 2018-02-01 10:48 | disposition home or self-care (01) | LOC: ERS 10:17 | DX: B35.6 Tinea cruris (principal); I10 Essential (primary) hypertension; F17.210 Nicotine dependence, cigarettes, uncomplicated | CPT/HCPCS: 99282 ==

== ENCOUNTER 2018-05-27 13:24 | Emergency (ER) | payer SELFPAY ==
[2018-05-27] MEDS ORDERED: Lidocaine 1% w/Epinephrine 1:100K 20 ML VIAL ONE (14:10)
[2018-05-27] MEDS ORDERED: Adacel (T-DAP) 0.5 ML SYRINGE ONE (14:12)
[2018-05-27] MEDS ORDERED: HYDROcodone/Acetaminophen 5/325 mg Tablet ONE (14:12)
== END 2018-05-27 15:40 | disposition home or self-care (01) ==
LOC: ERS 13:24
DX: S01.01XA Laceration without foreign body of scalp, initial encounter (principal); I10 Essential (primary) hypertension; F17.210 Nicotine dependence, cigarettes, uncomplicated; W22.8XXA Striking against or struck by other objects, initial encounter
CPT/HCPCS: 12002; 90471; 90715; J2001

== ENCOUNTER 2018-07-21 14:35 | Inpatient (IN) | payer SELFPAY ==
[~2018-07-21 14:35] MED LIST: ISOVUE-370 76%-LOCM 1 ML ONE
[2018-07-21] MEDS ORDERED: Morphine 4 MG/ML VIAL ONE ×2 (15:14→16:01)
[2018-07-21] MEDS ORDERED: Ondansetron PF 4 MG/2 ML Vial ONE ×2 (15:14→16:39)
[2018-07-21 15:39] LABS: #Basophils 0.1 thou/uL (0.0-0.2); #Eosinphils 0.1 thou/uL (0.0-0.7); #Lymphocytes 1.4 thou/uL (1.20-3.40); #Monocytes 0.8 thou/uL (0.11-0.59); #Neutrophils 4.2 thou/uL (1.40-6.50); %Basophils 1.1 % (0.0-1.0); %Eosinophils 0.8 % (0.0-10.0); %Lymphocytes 21.5 % (21.0-51.0); %Monocytes 11.6 % (0.0-10.0); Mean Corpuscular HGB CONC 33.9 g/dL (32.0-36.0); Mean Corpuscular Hemoglobin 33.4 pg (27.0-31.0); Mean Corpuscular Volume 98.5 fL (78.0-98.0); Mean Platelet Volume 7.6 fL (7.4-10.4); Platelet Count 208 thou/uL (130-400); White Blood Cell (WBC) Count 6.5 thou/uL (4.8-10.8)
--- NOTE | 2018-07-21 15:53 | CT ---
CT OF THE ABDOMEN AND PELVIS WITH IV CONTRAST INDICATION: Right inguinal hernia; right inguinal pain; concern for enlargement of the right inguinal hernia COMPARISON: CT abdomen pelvis dated 07/26/2017 FINDINGS: ABDOMEN: Lung bases: Clear Liver: Diffuse fatty liver Gallbladder: Normal appearing. Pancreas: Normal. Adrenal glands: Normal. Spleen: Normal. Kidneys: There is a 5 mm nonobstructing calculus within the inferior pole of the right kidney which i s stable. Left kidney is normal-appearing. Retroperitoneum of the upper abdomen: There are mild vascular calcifications seen involving the visua lized vasculature. No pathologically enlarged lymph nodes are evident. Pelvis: Small and large bowel: There is been interval enlargement of the right inguinal hernia now containing portions of the cecum, distal ileum and terminal ileum. There is no evidence to suggest bowel obstruction. Bladder: There is asymmetric wall thickening involving the anterior and superior aspect of the bladde r which is nonspecific. This appears similar to the comparison CT the chest, abdomen and pelvis dated 11/29/2016. Rectal and perirectal soft tissues:Normal. Reproductive structures: Normal. Free fluid in pelvis: No free fluid is evident. Lymphadenopathy pelvis: No lymphadenopathy is evident. Osseous structures: No acute osseous abnormality. No destructive osteolytic or osteoblastic lesion i s identified. There is scattered degenerative and osteoarthritic changes. IMPRESSION: 1. Interval enlargement of the right inguinal hernia now containing the cecum and distal ileum withou t evidence of bowel obstruction. 2. Stable wall thickening involving the anterior bladder. 3. Stable right nephrolithiasis 4. Stable fatty liver.
[2018-07-21 15:55] LABS: ALT (SGPT) 198 U/L (8-55); AST (SGOT) 204 U/L (5-34); Albumin 4.1 g/dL (3.5-5.0); Alkaline Phosphatase 121 U/L (40-150); Anion Gap 10 mmol/L (10-20); BUN (Urea Nitrogen) 4 mg/dL (8.9-20.6); Bilirubin, Total 0.9 mg/dL (0.2-1.2); Calc. Creatinine Clearance 0 mL/min (70-130); Calcium 9.6 mg/dL (7.8-10.44); Carbon Dioxide 29 mmol/L (22-29); Chloride 100 mmol/L (98-107); Estimated GFR-MDRD Greater than 90; Globulin 2.6 g/dL (2.4-3.5); Glucose 99 mg/dL (70-105); Protein, Total 6.7 g/dL (6.0-8.3); Sodium 135 mmol/L (136-145)
[2018-07-21] MEDS ORDERED: Succinylcholine Chloride 20 MG/ML 10 ml SYRINGE FS ONE (16:39)
[2018-07-21] MEDS ORDERED: Lidocaine 1% PF 5 ML VIAL ONE (16:39)
[2018-07-21] MEDS ORDERED: Glycopyrrolate 0.2 MG/ML 5 ML SYRINGE ONE (16:39)
[2018-07-21] MEDS ORDERED: Dexamethasone 20 MG/5 ML VIAL ONE (16:39)
[2018-07-21] MEDS ORDERED: Ketorolac Tromethamine 30 MG/ML VIAL ONE ×2 (16:39→20:08)
[2018-07-21] MEDS ORDERED: PROPOFOL 200 MG/20 ML VIAL ONE (16:39)
[2018-07-21] MEDS ORDERED: Rocuronium Bromide 10 MG/ML (10ML VIAL) ONE (16:39)
[2018-07-21] MEDS ORDERED: Acetaminophen 500 MG TAB ONE (16:57)
[2018-07-21] MEDS ORDERED: Bupivacaine/Epinephrine 0.25% 30 ML VIAL ONE (17:15)
[2018-07-21] MEDS ORDERED: Fentanyl 100 MCG/2 ML VIAL ONE ×4 (17:30→19:38)
[2018-07-21] MEDS ORDERED: Midazolam HCl 2 mg/2 ml Vial ONE (17:30)
[2018-07-21] MEDS ORDERED: Ondansetron HCl/PF 4 MG/2 ML Vial IVP PRN (17:34)
[2018-07-21] MEDS ORDERED: Promethazine HCl 25 MG/ML VIAL SLOW IVP PRN (17:34)
[2018-07-21] MEDS ORDERED: Promethazine HCl 25 MG/ML VIAL IM PRN ×2 (17:34→18:47)
[2018-07-21] MEDS ORDERED: Morphine 4 MG/ML VIAL SLOW IVP PRN ×2 (18:47)
[2018-07-21] MEDS ORDERED: Dextrose 5% in Water 1,000 ML IV PRN (18:47)
[2018-07-21] MEDS ORDERED: Dextrose 50% Abboject 50 ML SYRINGE SLOW IVP PRN (18:47)
[2018-07-21] MEDS ORDERED: hydrALAZINE 20 MG/ML VIAL SLOW IVP PRN (18:47)
[2018-07-21] MEDS ORDERED: Ondansetron PF 4 MG/2 ML Vial IVP PRN (18:47)
[2018-07-21] MEDS ORDERED: SUGAMMADEX SODIUM 200 MG/2 ML VIAL ONE (18:49)
[2018-07-21] MEDS ORDERED: Promethazine HCl 25 MG/ML VIAL ONE (20:36)
[2018-07-21] MEDS: D5 1/2 NS w/20 mEq KCL 1,000 ML IV SCH (21:29)
[2018-07-21] MEDS: HYDROcodone/Acetaminophen 10/325 mg Tablet PO PRN (21:30)
[2018-07-21] MEDS: Famotidine 20 MG TAB PO SCH (21:30)
[2018-07-21] MEDS: Famotidine/PF 20 mg/2ml Vial SLOW IVP SCH (21:32)
[2018-07-21 22:10] VITALS: BMI 31.8
[2018-07-21] MEDS: Ketorolac Tromethamine 30 MG/ML VIAL IVP SCH (23:49)
--- NOTE | 2018-07-22 00:05 | HP ---
CHIEF COMPLAINT: Right groin pain. HISTORY OF PRESENT ILLNESS: This is a 37-year-old male with a 4-year history of right inguinal hernia. Yesterday, he said that it became a lot larger and painful, unable to get it back in. He has had nausea, no vomiting. He had a bowel movement today. PAST MEDICAL HISTORY: Hypertension. PAST SURGICAL HISTORY: None. ALLERGIES: NO KNOWN DRUG ALLERGIES. SOCIAL HISTORY: He is . He works in [employer] maintenance. He smokes 1/2 pack per day. Drinks beer daily. FAMILY HISTORY: Both parents of heart disease. PHYSICAL EXAMINATION: GENERAL: He is awake and alert. Well-developed, well-nourished male, in pain. He is obese. VITAL SIGNS: Pulse 76, blood pressure 150/90, and 99% saturation. HEENT: Unremarkable. LUNGS: Clear. HEART: Regular rate and rhythm. ABDOMEN: Obese and soft. He has a tender right inguinal hernia that is incarcerated. No left-sided hernia. ASSESSMENT: Tender and incarcerated right inguinal hernia. PLAN: Repair. CONSENT: Discussed planned procedure as well as risk of bleeding, infection, and recurrence. He understands and gives informed consent. Job ID: [id number]
[2018-07-22] MEDS: HYDROcodone/Acetaminophen 10/325 mg Tablet PO PRN ×3 (02:36→09:35)
[2018-07-22] MEDS: Ketorolac Tromethamine 30 MG/ML VIAL IVP SCH (05:36)
[2018-07-22] MEDS: D5 1/2 NS w/20 mEq KCL 1,000 ML IV SCH (05:37)
[2018-07-22 06:01] LABS: #Lymphocytes 0.8 thou/uL (1.20-3.40); #Monocytes 0.9 thou/uL (0.11-0.59); #Neutrophils 7.4 thou/uL (1.40-6.50); %Basophils 0.2 % (0.0-1.0); %Eosinophils 0.1 % (0.0-10.0); %Lymphocytes 8.8 % (21.0-51.0); %Monocytes 10.2 % (0.0-10.0); %Neutrophils 80.7 % (42.0-75.0); Hemoglobin 13.5 g/dL (14.0-18.0); Mean Corpuscular HGB CONC 33.3 g/dL (32.0-36.0); Mean Corpuscular Hemoglobin 33.7 pg (27.0-31.0); Mean Platelet Volume 7.8 fL (7.4-10.4); Platelet Count 197 thou/uL (130-400); RBC Distribution Width 12.1 % (11.5-14.5); Red Blood Cell (RBC) Count 4.02 mill/uL (4.70-6.10); White Blood Cell (WBC) Count 9.2 thou/uL (4.8-10.8)
[2018-07-22 06:16] LABS: Anion Gap 11 mmol/L (10-20); BUN (Urea Nitrogen) 4 mg/dL (8.9-20.6); Calc. Creatinine Clearance 162 mL/min (70-130); Carbon Dioxide 29 mmol/L (22-29); Chloride 101 mmol/L (98-107); Estimated GFR-MDRD Greater than 90; Glucose 112 mg/dL (70-105); Potassium 4.8 mmol/L (3.5-5.1); Sodium 136 mmol/L (136-145)
[2018-07-22] MEDS: Famotidine 20 MG TAB PO SCH (07:40)
[2018-07-22] MEDS: Famotidine/PF 20 mg/2ml Vial SLOW IVP SCH (09:00)
[2018-07-22] MEDS ORDERED: Enoxaparin Sodium 40 MG/0.4 ML SYRINGE SC SCH (09:00)
--- NOTE | 2018-07-22 09:19 | OP ---
DATE OF PROCEDURE: 07/21/2018 PREOPERATIVE DIAGNOSIS: Incarcerated right inguinal hernia. PROCEDURE PERFORMED: Right inguinal hernia repair with mesh. INDICATIONS: A 37-year-old male who has had an inguinal hernia for many years, which became much larger over the last 24 hours and extremely painful. They were unable to get it reduced in the ER. It was too tender to reduce as far as we could tell. FINDINGS: Very large indirect inguinal hernia. During dissection, it reduced, so I was unable to visualize whether there was any compromised bowel, but it did go and there was minimal fluid in the sac suggesting was probably okay. DESCRIPTION OF PROCEDURE: After informed consent was obtained, the patient was taken to the operating room and given general endotracheal anesthesia, placed in supine position. Abdomen was prepped and draped in usual fashion. Local anesthesia infiltrated subcutaneously and deep. A transverse right inguinal incision was performed, subcu divided sharply. The fascia, external oblique was incised in direction of its fibers to the external ring. The hernia while was opening up the external oblique fascia reduced itself. I did not see any evidence of ischemic bowel. The spermatic cord was isolated with a Mascotte drain. The hernia sac was dissected from surrounding cord structures down to the internal ring and reduced. Reduction was maintained utilizing a PHS hernia system. The posterior layer was placed in the preperitoneal space, anterior was laid out, tucked under the external oblique fascia laterally, sutured to the pubic tubercle medially. A notch was cut out for the spermatic cord. Hemostasis was achieved with electrocautery. The spermatic cord was placed anatomically. The external oblique fascia was closed with a running 3-0 Vicryl Michelle was closed with interrupted 3-0 Vicryl and the skin was closed with a running subcuticular 4-0 Rapide. Steri-Strips applied, sterile bandage applied. The patient tolerated the procedure well, transferred to Recovery in good condition. Sponge and needle count verified correct x2. Job ID: [id number]
[2018-07-22 12:04] VITALS: BP 128/76; TEMP 98
--- NOTE | 2018-07-22 16:43 | DIS ---
DATE OF ADMISSION: 07/21/2018 DATE OF DISCHARGE: 07/22/2018 DISCHARGE DIAGNOSIS: Incarcerated right inguinal hernia. PROCEDURES DURING ADMISSION: Right inguinal hernia repair with mesh. HOSPITAL COURSE: The patient was admitted, on an emergency basis taken to the operating room, where he underwent a right inguinal hernia repair with mesh. It reduced during dissection, so he was observed overnight. He is doing well. He is tolerating a regular diet. His pain is controlled on p.o. medications. He is discharged home in good condition on hydrocodone and Colace. He will follow up with me in 2 weeks. Job ID: [id number]
== END 2018-07-22 13:13 | disposition home or self-care (01) | DRG 352 ==
LOC: ERS 14:35 → SURG A 18:47
PROVIDERS: ADMIT Surgery; ATTEND Surgery
PROC: 0YU50JZ Supplement Right Inguinal Region with Synthetic Substitute, Open Approach (ICD-10-PCS; principal; 2018-07-21)
DX: K40.30 Unilateral inguinal hernia, with obstruction, without gangrene, not specified as recurrent (principal); I10 Essential (primary) hypertension; F17.210 Nicotine dependence, cigarettes, uncomplicated
CPT/HCPCS: 36415; 74177; 80048; 80053; 85025; 96361; 96374; 96375; 96376; C1781; J0690; J1100; J1650; J1885; J2001; J2250; J2270; J2405; J2550; J2704; J3010; Q9966

== ENCOUNTER 2018-10-06 14:56 | Emergency (ER) | payer SELFPAY | END 2018-10-06 15:31 | disposition home or self-care (01) | LOC: ERS 14:56 | DX: L72.9 Follicular cyst of the skin and subcutaneous tissue, unspecified (principal); I10 Essential (primary) hypertension; F17.210 Nicotine dependence, cigarettes, uncomplicated | CPT/HCPCS: 99283 ==

== ENCOUNTER 2019-01-29 08:50 | Emergency (ER) | payer SELFPAY ==
[2019-01-29] MEDS ORDERED: Proparacaine 0.5% Opth 15 ML BOT ONE ×2 (09:49→10:21)
[2019-01-29] MEDS ORDERED: Fluorescein Opthalmic Strip ONE (09:49)
[2019-01-29] MEDS ORDERED: HYDROcodone/Acetaminophen 5/325 mg Tablet ONE (11:10)
== END 2019-01-29 11:28 | disposition home or self-care (01) ==
LOC: ERS 08:50
DX: T15.01XA Foreign body in cornea, right eye, initial encounter (principal); I10 Essential (primary) hypertension; F17.210 Nicotine dependence, cigarettes, uncomplicated
CPT/HCPCS: 99283

== ENCOUNTER 2019-03-04 16:00 | Emergency (ER) | payer SELFPAY ==
[~2019-03-04 16:00] MED LIST changes: -ISOVUE-370 76%-LOCM 1 ML ONE; +Iopamidol-370 76% 500 ML 1 ML ONE
[2019-03-04] MEDS ORDERED: Morphine 4 MG/ML VIAL ONE (17:41)
[2019-03-04] MEDS ORDERED: Ondansetron PF 4 MG/2 ML Vial ONE (17:41)
[2019-03-04 17:50] LABS: #Basophils 0.1 thou/uL (0.0-0.2); #Eosinphils 0.1 thou/uL (0.0-0.7); #Monocytes 0.8 thou/uL (0.11-0.59); #Neutrophils 4.8 thou/uL (1.40-6.50); %Basophils 0.7 % (0.0-1.0); %Lymphocytes 26.1 % (21.0-51.0); %Monocytes 10.4 % (0.0-10.0); %Neutrophils 61.9 % (42.0-75.0); Hemoglobin 14.3 g/dL (14.0-18.0); Mean Corpuscular Hemoglobin 31.7 pg (27.0-31.0); Mean Platelet Volume 7.7 fL (7.4-10.4); Platelet Count 210 thou/uL (130-400); RBC Distribution Width 13.5 % (11.5-14.5); Red Blood Cell (RBC) Count 4.53 mill/uL (4.70-6.10); White Blood Cell (WBC) Count 7.8 thou/uL (4.8-10.8)
[2019-03-04 18:12] LABS: ALT (SGPT) 105 U/L (8-55); AST (SGOT) 90 U/L (5-34); Albumin 4.1 g/dL (3.5-5.0); Alkaline Phosphatase 100 U/L (40-110); Anion Gap 12 mmol/L (10-20); BUN (Urea Nitrogen) 5 mg/dL (8.9-20.6); Bilirubin, Total 0.5 mg/dL (0.2-1.2); Calc. Creatinine Clearance 0 mL/min (70-130); Calcium 9.3 mg/dL (7.8-10.44); Carbon Dioxide 27 mmol/L (22-29); Chloride 104 mmol/L (98-107); Estimated GFR-MDRD Greater than 90; Globulin 2.6 g/dL (2.4-3.5); Glucose 124 mg/dL (70-105); Lipase 83 U/L (8-78); Potassium 3.7 mmol/L (3.5-5.1); Protein, Total 6.7 g/dL (6.0-8.3); Sodium 139 mmol/L (136-145)
--- NOTE | 2019-03-04 18:45 | CT ---
CT OF ABDOMEN AND PELVIS PERFORMED WITH INTRAVENOUS CONTRAST ENHANCEMENT: 03/04/19 HISTORY: Right lower quadrant pain. History of a previous hernia repair. COMPARISON: A 07/21/18 study. The lung bases show some linear scarring. The liver shows diffuse fatty change. It measures 20 cm. Spleen is within normal limits of size. Panc reas and gallbladder regions are unremarkable. Right and left adrenal glands and right and left kidneys are normal in size. There is an approximatel y 6 mm nonobstructing lower pole right renal calculus. There is no significant periaortic or mesenter ic adenopathy. The appendix lies along the medial margin of the ascending colon and is normal in appe arance. There is moderate colonic diverticulosis seen. CT OF PELVIS PERFORMED WITH CONTRAST: There is a right inguinal hernia seen without signs of obstruction. Hernia contains small bowel. Blad adeola wall thickening is seen. This would indicate an element of bladder outlet obstruction. IMPRESSION: 1. Large right inguinal hernia not associated with any obstruction. 2. Diffuse fatty change of a mildly enlarged liver. 3. Nonobstructing 5 to 6 mm lower pole right renal calculus. 4. Colonic diverticulosis. 5. Bladder wall thickening. POS: [facility]
[2019-03-04] MEDS ORDERED: HYDROcodone/Acetaminophen 5/325 mg Tablet ONE (19:30)
== END 2019-03-04 19:30 | disposition home or self-care (01) ==
LOC: ERS 16:00
DX: K40.90 Unilateral inguinal hernia, without obstruction or gangrene, not specified as recurrent (principal); I10 Essential (primary) hypertension; F17.210 Nicotine dependence, cigarettes, uncomplicated
CPT/HCPCS: 36415; 74177; 80053; 83605; 83690; 85025; 96374; 96375; J2270; J2405; Q9967

== ENCOUNTER 2019-03-05 12:52 | Emergency (ER) | payer SELFPAY ==
--- NOTE | 2019-03-05 13:44 | CT ---
EXAM: CT Pelvis WO Con PROVIDED CLINICAL HISTORY: Inguinal hernia COMPARISON: CT 03/04/2019 FINDINGS: Small bowel containing right inguinal hernia is redemonstrated. There is no mesenteric edema fluid or evidence for resultant bowel obstruction. The visualized portions of the appendix appear normal. Colonic diverticulosis changes are seen. Material of increased density is seen within the urinary harish dder, presumably reflecting retained contrast material. IMPRESSION: Stable right inguinal hernia.
== END 2019-03-05 14:43 | disposition home or self-care (01) ==
LOC: ERS 12:52
DX: K40.90 Unilateral inguinal hernia, without obstruction or gangrene, not specified as recurrent (principal); F17.210 Nicotine dependence, cigarettes, uncomplicated; I10 Essential (primary) hypertension
CPT/HCPCS: 72192

== ENCOUNTER 2019-03-23 09:15 | Inpatient (IN) | payer SELFPAY ==
[2019-03-23 11:13] LABS: #Basophils 0.1 thou/uL (0.0-0.2); #Eosinphils 0.1 thou/uL (0.0-0.7); #Lymphocytes 1.7 thou/uL (1.20-3.40); #Monocytes 0.9 thou/uL (0.11-0.59); %Basophils 0.9 % (0.0-1.0); %Eosinophils 1.6 % (0.0-10.0); %Lymphocytes 21.8 % (21.0-51.0); %Monocytes 10.9 % (0.0-10.0); %Neutrophils 64.8 % (42.0-75.0); Hemoglobin 14.8 g/dL (14.0-18.0); Mean Corpuscular HGB CONC 32.8 g/dL (32.0-36.0); Mean Corpuscular Hemoglobin 31.7 pg (27.0-31.0); Mean Corpuscular Volume 96.8 fL (78.0-98.0); Mean Platelet Volume 7.2 fL (7.4-10.4); Platelet Count 283 thou/uL (130-400); RBC Distribution Width 13.8 % (11.5-14.5); Red Blood Cell (RBC) Count 4.66 mill/uL (4.70-6.10); White Blood Cell (WBC) Count 7.7 thou/uL (4.8-10.8)
[2019-03-23 11:29] LABS: ALT (SGPT) 53 U/L (8-55); AST (SGOT) 43 U/L (5-34); Albumin 4.1 g/dL (3.5-5.0); Alkaline Phosphatase 96 U/L (40-110); Anion Gap 9 mmol/L (10-20); BUN (Urea Nitrogen) 6 mg/dL (8.9-20.6); Bilirubin, Total 0.3 mg/dL (0.2-1.2); Calc. Creatinine Clearance 0 mL/min (70-130); Calcium 8.9 mg/dL (7.8-10.44); Carbon Dioxide 28 mmol/L (22-29); Chloride 104 mmol/L (98-107); Estimated GFR-MDRD Greater than 90; Globulin 2.6 g/dL (2.4-3.5); Glucose 74 mg/dL (70-105); Potassium 4.2 mmol/L (3.5-5.1); Protein, Total 6.7 g/dL (6.0-8.3); Sodium 137 mmol/L (136-145)
[2019-03-23] MEDS ORDERED: Ketorolac Tromethamine 30 MG/ML VIAL ONE (11:32)
[2019-03-23] MEDS ORDERED: Morphine 4 MG/ML VIAL ONE (11:32)
--- NOTE | 2019-03-23 11:38 | RAD ---
Exam: Chest one view HISTORY:Pain Comparison: 07/26/2017 FINDINGS: Cardiac silhouette: Normal Aorta: Unremarkable Pulmonary vessels: Normal Costophrenic angles: Clear LUNGS: No masses or consolidation. Pneumothorax: None Osseous abnormalities: None IMPRESSION: No acute cardiopulmonary process.
--- NOTE | 2019-03-23 12:45 | CT ---
CT ABDOMEN AND PELVIS WITH IV CONTRAST: HISTORY: Right inguinal hernia. Abdominal pain. COMPARISON: 03/04/2019 FINDINGS: The lung bases are clear. Changes of fatty infiltration of the liver are again noted without focal ma ss or abnormal biliary ductal dilatation. The spleen, pancreas, adrenal glands and left kidney are no rmal. A nonobstructing 6 mm calculus in the right kidney is stable. No calcified gallstones are seen. No free air, free fluid or lymphadenopathy is seen. The appendix is normal. There is colonic divertic ulosis. There is thickening of the wall of the urinary bladder. There is a right sided inguinal herni a containing a nonobstructed loop of small bowel. IMPRESSION: 1. Fatty liver. 2. Nonobstructing right renal calculus. 3. Colonic diverticulosis. 4. Urinary bladder wall thickening. A urologic consultation would be helpful. 5. Right inguinal hernia containing a nonobstructed loop of small bowel. POS: [facility]
[2019-03-23] MEDS ORDERED: Iopamidol 370 76% 50 ML VIAL FS ONE (14:45)
[2019-03-23] MEDS ORDERED: Iopamidol-370 76% 500 ML 1 ML ONE (14:45)
[2019-03-23] MEDS ORDERED: Sodium Chloride 0.9% 1,000 ML IV SCH (15:04)
[2019-03-23] MEDS ORDERED: Ondansetron ODT 4 MG TAB SL PRN (15:04)
[2019-03-23] MEDS ORDERED: Acetaminophen 325 MG TAB PO PRN (15:04)
[2019-03-23] MEDS ORDERED: Ondansetron PF 4 MG/2 ML Vial IVP PRN ×2 (15:04→17:03)
[2019-03-23] MEDS: Morphine 4 MG/ML VIAL SLOW IVP PRN ×2 (15:45→21:06)
[2019-03-23 16:06] VITALS: BMI 27.0
[2019-03-23] MEDS ORDERED: Morphine 2 MG/ML SYRINGE SLOW IVP PRN (17:06)
[2019-03-23] MEDS ORDERED: CEFAZOLIN 2 GM in Premix Bag 1 BAG IVPB SCH (17:15)
--- NOTE | 2019-03-23 20:09 | HP ---
HISTORY OF PRESENT ILLNESS: The patient was seen yesterday in the office. Insurance issues prevented him from being scheduled for surgery. He is having a lot of pain with recurrent right inguinal hernia. He went to the emergency room today. What is unusual is that this hernia is associated with quite a bit of right leg pain as well that travels down to his foot especially when it is tried to be reduced. No nausea or vomiting. In fact, he is hungry. He just ate at 11:00 a.m., so that prevented us from doing the surgery today. PHYSICAL EXAMINATION: GENERAL: On exam, he does not appear to be in any distress. VITAL SIGNS: His temperature is 98.1, pulse 65, blood pressure 126/80. He is awake and alert. ABDOMEN: Soft, nondistended, nontender. He has a large recurrent right inguinal hernia. LABORATORY DATA: White count 7, H and H of 14 and 45, and platelet count of 283. Electrolytes are fine. ASSESSMENT: Recurrent right inguinal hernia, somewhat incarcerated. CT scan shows right inguinal hernia with nonobstructed small bowel. PLAN: We will plan on n.p.o. after midnight, repair in the morning. Job ID: [id number]
[2019-03-24] MEDS: Morphine 4 MG/ML VIAL SLOW IVP PRN ×2 (01:03→06:03)
[2019-03-24] MEDS ORDERED: Lidocaine 1% w/Epinephrine 1:100K 20 ML VIAL ONE (08:34)
[2019-03-24] MEDS ORDERED: Fentanyl 100 MCG/2 ML VIAL ONE ×2 (08:35→10:20)
[2019-03-24] MEDS ORDERED: Esmolol 100 MG/10 ML VIAL ONE (09:42)
[2019-03-24] MEDS ORDERED: Ketorolac Tromethamine 30 MG/ML VIAL ONE (09:42)
[2019-03-24] MEDS ORDERED: ePHEDrine/0.9% NaCl/PF SYRINGE 50 mg/10 ml ONE (09:42)
[2019-03-24] MEDS ORDERED: Succinylcholine Chloride 20 MG/ML 10 ml SYRINGE FS ONE (09:42)
[2019-03-24] MEDS ORDERED: Rocuronium Bromide 10 MG/ML (10ML VIAL) ONE (09:42)
[2019-03-24] MEDS ORDERED: PHENYLEPHRINE-NS 100 MCG/ML 10 ML SYRINGE ONE (09:42)
[2019-03-24] MEDS ORDERED: PROPOFOL 200 MG/20 ML VIAL ONE (09:42)
[2019-03-24] MEDS ORDERED: Ondansetron PF 4 MG/2 ML Vial ONE (09:42)
[2019-03-24] MEDS ORDERED: Lidocaine 1% PF 5 ML VIAL ONE (09:42)
[2019-03-24] MEDS ORDERED: Glycopyrrolate 0.2 MG/ML 5 ML SYRINGE ONE (09:42)
[2019-03-24] MEDS ORDERED: Dexamethasone 20 MG/5 ML VIAL ONE (09:42)
[2019-03-24] MEDS ORDERED: HYDROcodone/Acetaminophen 10/325 mg Tablet PO PRN ×2 (10:05)
[2019-03-24] MEDS ORDERED: Promethazine HCl 25 MG/ML VIAL IM PRN (10:22)
[2019-03-24] MEDS ORDERED: Ondansetron HCl/PF 4 MG/2 ML Vial IVP PRN (10:22)
[2019-03-24] MEDS ORDERED: Promethazine HCl 25 MG/ML VIAL SLOW IVP PRN (10:22)
[2019-03-24] MEDS ORDERED: diphenhydrAMINE 50 MG/ML VIAL ONE (10:46)
[2019-03-24 11:47] VITALS: BP 130/90; TEMP 97.5
--- NOTE | 2019-03-24 14:03 | OP ---
DATE OF PROCEDURE: 03/24/2019 PREOPERATIVE DIAGNOSIS: Recurrent left inguinal hernia. PROCEDURE PERFORMED: Recurrent left inguinal hernia repair. INDICATIONS: This is a 38-year-old male who had an emergency repair of incarcerated hernia in August, who developed a recurrent bulge that was painful and difficult to reduce. FINDINGS: He had a recurrent hernia blowout of the lateral edge of the mesh creating a direct defect. DESCRIPTION OF PROCEDURE: After informed consent was obtained, patient was taken to the operating room and given general mask anesthesia. He was placed in supine position. His groin area was prepped and draped in usual fashion. Local anesthesia infiltrated subcutaneously and deep. A transverse incision was performed through the old scar. Subcu divided sharply. The hernia sac was found, it was dissected down. The spermatic cord was isolated with a Marion drain, dissected from the hernia sac. Then encountered mesh. The mesh was dissected and it turned out that it was on the medial aspect of the hernia sac. I was able to dissect it all the way down to the preperitoneal space and then reduced the hernia sac. The hernia was repaired utilizing the existing mesh with interrupted [id number] of 2-0 Prolene suture suturing the lateral edge of the mesh to the inguinal ligament and to the pubic tubercle to close the defect. Hemostasis was assured. I did have to ligate the inferior epigastric vein during dissection with a 3-0 Vicryl stick tie. The subcu was reapproximated with interrupted 3-0 Vicryl and the skin closed with a running subcuticular 4-0 Rapide, Steri-Strips applied, sterile bandage applied. The patient tolerated the procedure well, transferred to Recovery in good condition. Sponge, needle count verified and correct x2. Job ID: [id number]
--- NOTE | 2019-03-24 14:46 | DIS ---
DATE OF ADMISSION: 03/23/2019 DATE OF DISCHARGE: 03/24/2019 DISCHARGE DIAGNOSIS: Incarcerated recurrent right inguinal hernia. PROCEDURES DURING ADMISSION: Recurrent right inguinal hernia repair. HOSPITAL COURSE: The patient was admitted, given IV fluids, pain medicine, taken to the operating room, where he underwent a recurrent right inguinal hernia repair. Postoperatively, he has done well. His pain is minimal. He is discharged home on hydrocodone Colace. He will follow up with me in 2 weeks. Job ID: [id number]
== END 2019-03-24 13:50 | disposition home or self-care (01) | DRG 352 ==
LOC: ERS 09:15 → SURG B 14:56
PROVIDERS: ADMIT Surgery; ATTEND Surgery
PROC: 0YU60JZ Supplement Left Inguinal Region with Synthetic Substitute, Open Approach (ICD-10-PCS; principal; 2019-03-21)
DX: K40.31 Unilateral inguinal hernia, with obstruction, without gangrene, recurrent (principal); I10 Essential (primary) hypertension; F17.200 Nicotine dependence, unspecified, uncomplicated
CPT/HCPCS: 36415; 71045; 74177; 80053; 85025; 93005; 96361; 96374; 96375; J0690; J1100; J1200; J1885; J2001; J2270; J2405; J2704; J3010; Q9967

== ENCOUNTER 2019-04-01 08:29 | Emergency (ER) | payer SELFPAY ==
[2019-04-01] MEDS ORDERED: Fentanyl 100 MCG/2 ML VIAL ONE (09:02)
[2019-04-01] MEDS ORDERED: Ketorolac Tromethamine 60 MG/2 ML VIAL ONE (09:02)
--- NOTE | 2019-04-01 10:12 | ULT ---
SCROTAL ULTRASOUND: Date: 04/01/2019 INDICATION: History of testicular pain and right inguinal surgery [address] Ferguson. COMPARISON: CT abdomen and pelvis with contrast dated 03/23/2019. FINDINGS: Within the right inguinal canal, there is heterogeneous mass-like collection with associated fluid wi th no visible internal Doppler flow suspicious for large hematoma in the right inguinal region. The c ollection demonstrates no evidence of bowel echo signal pattern to suggest a residual hernia with her niated intestines. The right testicle demonstrates a normal appearance with normal flow. Left testicle appears normal ap pearing with normal flow. Epididymides appear within normal limits. Left testicle measures 4.4 x 2.2 x 2.8 cm. Right testicle measures 4.3 x 2.2 x 3.1 cm. IMPRESSION: 1. Complex nonvascular echogenic material within the right inguinal canal suspicious for large right inguinal hematoma. This has one portion that does communicate with the peritoneal cavity. Would mallorie mmend consideration for a repeat CT of the abdomen and pelvis with IV contrast to evaluate extent of this hematoma involving the right inguinal canal. 2. No evidence of focal testicular lesion or torsion. POS: [facility]
== END 2019-04-01 10:35 | disposition home or self-care (01) ==
LOC: ERS 08:29
DX: L76.32 Postprocedural hematoma of skin and subcutaneous tissue following other procedure (principal); F17.210 Nicotine dependence, cigarettes, uncomplicated; Z79.1 Long term (current) use of non-steroidal anti-inflammatories (NSAID)
CPT/HCPCS: 76870; 93976; 96372; J1885; J3010

== ENCOUNTER 2020-09-12 16:55 | Observation (INO) | payer SELFPAY ==
[2020-09-12 17:39] LABS: #Basophils 0.1 thou/uL (0.0-0.2); #Eosinphils 0.1 thou/uL (0.0-0.7); #Lymphocytes 1.5 thou/uL (1.20-3.40); #Monocytes 0.7 thou/uL (0.11-0.59); #Neutrophils 6.1 thou/uL (1.40-6.50); %Eosinophils 0.8 % (0.0-10.0); %Lymphocytes 18.1 % (21.0-51.0); %Monocytes 8.4 % (0.0-10.0); %Neutrophils 71.7 % (42.0-75.0); Hemoglobin 14.3 g/dL (14.0-18.0); Mean Corpuscular HGB CONC 34.2 g/dL (32.0-36.0); Mean Corpuscular Hemoglobin 32.6 pg (27.0-31.0); Mean Corpuscular Volume 95.2 fL (78.0-98.0); Mean Platelet Volume 7.2 fL (7.4-10.4); Platelet Count 245 thou/uL (130-400); RBC Distribution Width 13.5 % (11.5-14.5); Red Blood Cell (RBC) Count 4.38 mill/uL (4.70-6.10); White Blood Cell (WBC) Count 8.5 thou/uL (4.8-10.8)
[2020-09-12 17:42] LABS: Bilirubin Negative (Negative); Blood, Urine Negative (Negative); Clarity Clear (Clear); Glucose, Urine (Dipstick) Normal (Negative); Ketone, Urine Negative (Negative); Leukocyte Negative Leu/uL (Negative); Nitrite Negative (Negative); Protein, Urine (Dipstick) Negative (Neg-Trace); Specific Gravity, Urine 1.003 (1.002-1.036); Urobilinogen Normal mg/dL (Less than 2); pH, Urine 6.5 (5.0-9.0)
[2020-09-12 18:02] LABS: ALT (SGPT) 74 U/L (8-55); AST (SGOT) 128 U/L (5-34); Albumin 3.7 g/dL (3.5-5.0); Alkaline Phosphatase 118 U/L (40-110); Anion Gap 17 mmol/L (10-20); BUN (Urea Nitrogen) Less than 4 mg/dL (8.9-20.6); Bilirubin, Total 0.9 mg/dL (0.2-1.2); Calc. Creatinine Clearance 0 mL/min (70-130); Calcium 8.7 mg/dL (7.8-10.44); Carbon Dioxide 22 mmol/L (22-29); Chloride 100 mmol/L (98-107); Globulin 2.8 g/dL (2.4-3.5); Glucose 89 mg/dL (70-105); Lipase 83 U/L (8-78); Potassium 3.6 mmol/L (3.5-5.1); Protein, Total 6.5 g/dL (6.0-8.3); Sodium 135 mmol/L (136-145)
[2020-09-12] MEDS ORDERED: Aspirin Chewable 81 MG TAB ONE (19:21)
[2020-09-12] MEDS ORDERED: Nitroglycerin 0.4 MG TAB 1 EACH ONE (19:21)
[2020-09-12] MEDS ORDERED: Thiamine HCl 200 MG/2 ML VIAL IM SCH (21:00)
[2020-09-12] MEDS ORDERED: Sodium Chloride 0.9% 1,000 ML IV SCH (21:00)
[2020-09-12] MEDS ORDERED: Magnesium 2 GM/50 ML 2 GM in Premix Bag 1 BAG IVPB SCH (21:00)
[2020-09-12] MEDS ORDERED: Ondansetron ODT 4 MG TAB PO PRN ×2 (21:11→22:21)
[2020-09-12] MEDS ORDERED: Amlodipine 5 MG TAB PO SCH (21:15)
[2020-09-12 21:27] LABS: Troponin I 0.017 ng/mL (< 0.028)
[2020-09-12] MEDS ORDERED: Morphine 2 MG/ML VIAL SLOW IVP PRN (22:46)
[2020-09-13 00:09] LABS: Troponin I Less than 0.010 ng/mL (< 0.028)
[2020-09-13] MEDS ORDERED: Folic Acid 1 MG TAB PO SCH (00:15)
[2020-09-13] MEDS: Folic Acid 1 MG TAB PO SCH ×2 (00:35→12:04)
[2020-09-13 01:03] VITALS: BMI 29.1
[2020-09-13] MEDS ORDERED: diphenhydrAMINE 50 MG CAP PO SCH (01:30)
[2020-09-13] MEDS ORDERED: diphenhydrAMINE 50 MG CAP PO PRN (04:31)
[2020-09-13 05:16] LABS: #Basophils 0.1 thou/uL (0.0-0.2); #Eosinphils 0.1 thou/uL (0.0-0.7); #Lymphocytes 2.5 thou/uL (1.20-3.40); #Monocytes 0.6 thou/uL (0.11-0.59); %Basophils 0.9 % (0.0-1.0); %Eosinophils 1.7 % (0.0-10.0); %Lymphocytes 33.9 % (21.0-51.0); %Monocytes 8.5 % (0.0-10.0); Hemoglobin 13.9 g/dL (14.0-18.0); Mean Corpuscular HGB CONC 34.4 g/dL (32.0-36.0); Mean Corpuscular Volume 95.9 fL (78.0-98.0); Mean Platelet Volume 7.8 fL (7.4-10.4); Platelet Count 198 thou/uL (130-400); RBC Distribution Width 13.3 % (11.5-14.5); Red Blood Cell (RBC) Count 4.22 mill/uL (4.70-6.10); White Blood Cell (WBC) Count 7.3 thou/uL (4.8-10.8)
[2020-09-13 05:27] LABS: Hemoglobin A1c 4.8 % (4.0-6.0)
[2020-09-13 05:40] LABS: Anion Gap 14 mmol/L (10-20); BUN (Urea Nitrogen) Less than 4 mg/dL (8.9-20.6); Calc. Creatinine Clearance 156 mL/min (70-130); Calcium 8.4 mg/dL (7.8-10.44); Carbon Dioxide 23 mmol/L (22-29); Cardiac Risk 1.5 (Less than 4.5); Chloride 105 mmol/L (98-107); Cholesterol 176 mg/dl (< 200 Desired); Glucose 83 mg/dL (70-105); HDL Cholesterol 116 mg/dL (>60 Neg Risk); LDL Cholesterol, Calculated 52 mg/dL; Potassium 3.6 mmol/L (3.5-5.1); Sodium 138 mmol/L (136-145); Triglycerides 39 mg/dL (Less than 150)
[2020-09-13] MEDS ORDERED: Lactated Ringer's 1,000 ML IV SCH (08:00)
[2020-09-13] MEDS ORDERED: ADENOSINE 60 MG/20 ML VIAL ONE (08:43)
[2020-09-13] MEDS ORDERED: Amlodipine 5 MG TAB PO SCH (09:00)
[2020-09-13] MEDS ORDERED: Aspirin Chewable 81 MG TAB PO SCH (09:00)
[2020-09-13] MEDS ORDERED: Fentanyl 100 MCG/2 ML VIAL SLOW IVP PRN (09:42)
[2020-09-13] MEDS ORDERED: Ondansetron PF 4 MG/2 ML Vial IVP PRN (09:45)
[2020-09-13] MEDS ORDERED: Tamsulosin HCl 0.4 MG CAP PO SCH (10:45)
[2020-09-13 11:27] LABS: SARS-CoV-2 PCR by NAA Not Detected (NotDetected)
[2020-09-13 16:11] VITALS: BP 137/92; TEMP 97.7
[2020-09-14] MEDS ORDERED: Amlodipine 10 MG TAB PO SCH (09:00)
[2020-09-14] MEDS ORDERED: Tamsulosin HCl 0.4 MG CAP PO SCH (09:00)
== END 2020-09-13 19:04 | disposition home or self-care (01) ==
LOC: ERS 16:55 → 2SW 20:35
PROVIDERS: ADMIT Emergency Medicine; ATTEND Emergency Medicine
DX: K70.0 Alcoholic fatty liver (principal); F10.188 Alcohol abuse with other alcohol-induced disorder; E87.1 Hypo-osmolality and hyponatremia; K57.30 Diverticulosis of large intestine without perforation or abscess without bleeding; N32.89 Other specified disorders of bladder; N20.0 Calculus of kidney; R07.89 Other chest pain; I10 Essential (primary) hypertension; F17.210 Nicotine dependence, cigarettes, uncomplicated; Z91.14 Patient's other noncompliance with medication regimen; Z20.822 Contact with and (suspected) exposure to COVID-19; Z87.19 Personal history of other diseases of the digestive system
CPT/HCPCS: 36415; 71045; 74177; 76705; 78452; 80048; 80053; 80061; 81003; 82150; 82550; 83036; 83690; 84484; 85025; 93005; 93017; 94760; 96365; 96372; 96375; A9500; G0378; J0153; J2270; J3010; J3411; J3475; U0003; U0005

== ENCOUNTER 2020-12-05 18:34 | Emergency (ER) | payer SELFPAY ==
[2020-12-06 00:48] LABS: SARS-CoV-2 PCR by NAA DETECTED (NotDetected)
== END 2020-12-05 19:55 | disposition home or self-care (01) ==
LOC: ERS 18:34
DX: U07.1 COVID-19 (principal); I10 Essential (primary) hypertension; F17.210 Nicotine dependence, cigarettes, uncomplicated
CPT/HCPCS: 99281; U0003; U0005

== ENCOUNTER 2021-05-02 13:34 | Emergency (ER) | payer SELFPAY ==
[~2021-05-02 13:34] MED LIST changes: +Iopamidol 370 76% 100 ML VIAL ONE; -Iopamidol-370 76% 500 ML 1 ML ONE
[2021-05-02] MEDS ORDERED: Fentanyl 100 MCG/2 ML VIAL ONE (14:01)
[2021-05-02] MEDS ORDERED: Ondansetron PF 4 MG/2 ML Vial ONE (14:01)
[2021-05-02 14:06] LABS: #Lymphocytes 1.6 thou/uL (1.20-3.40); #Monocytes 0.9 thou/uL (0.11-0.59); #Neutrophils 6.8 thou/uL (1.40-6.50); %Basophils 0.4 % (0.0-1.0); %Eosinophils 0.4 % (0.0-10.0); %Lymphocytes 17.3 % (21.0-51.0); %Monocytes 9.7 % (0.0-10.0); %Neutrophils 72.1 % (42.0-75.0); Hemoglobin 14.9 g/dL (14.0-18.0); Mean Corpuscular HGB CONC 32.5 g/dL (32.0-36.0); Mean Corpuscular Hemoglobin 28.6 pg (27.0-31.0); Mean Corpuscular Volume 87.9 fL (78.0-98.0); Mean Platelet Volume 6.8 fL (7.4-10.4); Platelet Count 277 thou/uL (130-400); RBC Distribution Width 14.5 % (11.5-14.5); Red Blood Cell (RBC) Count 5.21 mill/uL (4.70-6.10); White Blood Cell (WBC) Count 9.4 thou/uL (4.8-10.8)
[2021-05-02 14:28] LABS: ALT (SGPT) 35 U/L (8-55); AST (SGOT) 56 U/L (5-34); Albumin 4.3 g/dL (3.5-5.0); Alkaline Phosphatase 108 U/L (40-110); Anion Gap 23 mmol/L (10-20); BUN (Urea Nitrogen) 5 mg/dL (8.9-20.6); Bilirubin, Total 0.6 mg/dL (0.2-1.2); Calc. Creatinine Clearance 0 mL/min (70-130); Calcium 9.5 mg/dL (7.8-10.44); Carbon Dioxide 15 mmol/L (22-29); Chloride 94 mmol/L (98-107); Globulin 3.7 g/dL (2.4-3.5); Glucose 110 mg/dL (70-105); Lipase 66 U/L (8-78); Potassium 4.2 mmol/L (3.5-5.1); Sodium 128 mmol/L (136-145)
[2021-05-02] MEDS ORDERED: Mag-Al 1200 mg/1200 mg/30 ML UDCUP ONE (15:44)
[2021-05-02] MEDS ORDERED: Lidocaine Viscous Sol 2% 15 ml UD Cup ONE (15:44)
== END 2021-05-02 18:10 | disposition home or self-care (01) ==
LOC: ERS 13:34
DX: R10.13 Epigastric pain (principal); R00.0 Tachycardia, unspecified; R07.9 Chest pain, unspecified; I10 Essential (primary) hypertension; F17.210 Nicotine dependence, cigarettes, uncomplicated; Z87.19 Personal history of other diseases of the digestive system
CPT/HCPCS: 71045; 71275; 80053; 83690; 84484; 85025; 85379; 93005; 96374; 96375; J2405; J3010; Q9967

== ENCOUNTER 2022-02-04 12:58 | Emergency (ER) | payer SELFPAY ==
[2022-02-04] MEDS ORDERED: Ibuprofen 800 MG TAB ONE (13:58)
== END 2022-02-04 14:38 | disposition home or self-care (01) ==
LOC: ERS 12:58
DX: M79.601 Pain in right arm (principal); F17.210 Nicotine dependence, cigarettes, uncomplicated

== ENCOUNTER 2022-07-29 20:14 | Emergency (ER) | payer SELFPAY ==
[2022-07-29] MEDS ORDERED: Acetaminophen 325 MG TAB ONE (21:37)
== END 2022-07-29 21:40 | disposition home or self-care (01) ==
LOC: ERS 20:14
DX: L40.9 Psoriasis, unspecified (principal); I10 Essential (primary) hypertension; F17.210 Nicotine dependence, cigarettes, uncomplicated
CPT/HCPCS: 99282

== ENCOUNTER 2022-09-01 09:57 | Emergency (ER) | payer SELFPAY ==
[2022-09-01] MEDS ORDERED: predniSONE 20 MG TAB ONE (10:47)
[2022-09-01] MEDS ORDERED: hydrOXYzine 25 MG TAB ONE (10:49)
== END 2022-09-01 11:13 | disposition home or self-care (01) ==
LOC: ERS 09:57
DX: R21 Rash and other nonspecific skin eruption (principal); I10 Essential (primary) hypertension; F17.210 Nicotine dependence, cigarettes, uncomplicated
CPT/HCPCS: 99282; J7512

== ENCOUNTER 2025-03-13 10:59 | Emergency (ER) | payer SELFPAY | END 2025-03-13 11:40 | disposition home or self-care (01) | LOC: ERS 10:59 | DX: Z48.812 Encounter for surgical aftercare following surgery on the circulatory system (principal); I10 Essential (primary) hypertension; F17.210 Nicotine dependence, cigarettes, uncomplicated | CPT/HCPCS: 99282 ==